=== PATIENT | male | born 1960 | race Caucasian/White ===

== ENCOUNTER 2022-12-30 15:24 | Emergency (ER) | payer SELFPAY ==
[~2022-12-30] VITALS: Ht 177.8 cm; Wt 90.0 kg
[2022-12-30 15:31] VITALS: O2SAT 94
[2022-12-30] MEDS ORDERED: ONDANSETRON HCL 4MG/2ML INJ IV STA (15:43)
[2022-12-30] MEDS ORDERED: SODIUM CHLORIDE 0.9% 1,000 ML IV ONE (15:45)
[2022-12-30] MEDS ORDERED: MECLIZINE 25MG TABLET PO ONE (15:45)
[2022-12-30] MEDS ORDERED: MECLIZINE 12.5MG TABLET PO NR (16:00)
[2022-12-30 16:44] LABS: BASOPHILS % 0.3 % (0.0-2.0); EOSINOPHILS % 0.7 % (0.0-5.0); HEMATOCRIT. 42.9 % (42.0-52.0); HEMOGLOBIN. 14.4 g/dL (14.0-18.0); LYMPHOCYTES % 9.8 % (20.0-50.0); MEAN CORPUSCULAR HEMOGLOBIN 28.7 pg (28.0-32.0); MEAN CORPUSCULAR HGB CONC 33.6 g/dL (31.0-37.0); MEAN CORPUSCULAR VOLUME 85.6 fL (80.0-94.0); MEAN PLATELET VOLUME 8.3 fl (7.4-10.4); MONOCYTES % 4.2 % (2.0-8.0); PLATELET 114 x1000/uL (130-400); RED BLOOD CELL COUNT 5.01 mill/uL (4.7-6.1); RED CELL DISTRIBUTION WIDTH 14.9 % (11.6-14.6); WHITE BLOOD COUNT 8.7 x1000/uL (4.5-11.0)
[2022-12-30 16:49] LABS: PROTHROMBIN TIME 11.1 sec (9.6-11.0)
[2022-12-30 16:54] LABS: CHLORIDE 109 mEq/L (98-107); INDEX HEMOLYSI 1 (1-3); INDEX ICTERIC 1 (1-4); INDEX LIPEMIC 1 (1-3); POTASSIUM 3.7 mEq/L (3.5-5.1); SODIUM 143 mEq/L (136-145)
[2022-12-30 16:58] LABS: DIFFERENTIAL COMMENT 1
[2022-12-30 17:14] LABS: ALANINE AMINOTRANSFERASE 44 IU/L (13-61); ALBUMIN 3.5 g/dL (3.4-5.0); ASPARTATE AMINOTRANSFERASE 18 IU/L (15-37); BILIRUBIN TOTAL 0.7 mg/dL (0.1-1.0); CALCIUM 9.2 mg/dL (8.5-10.1); CARBON DIOXIDE 28 mEq/L (21-32); CREATININE 1.1 mg/dL (0.6-1.3); GLUCOSE 133 mg/dL (70-105); TROPONIN I HIGH SENSITIVITY 5 ng/L (<78); UREA NITROGEN BLOOD 18 mg/dL (7-21)
[2022-12-30 18:27] LABS: TROPONIN I HIGH SENSITIVITY 6 ng/L (<78)
[2022-12-30] MEDS ORDERED: MECL-299 PO (18:31)
[2022-12-30] MEDS ORDERED: ONDANSETRON HCL 4MG/2ML INJ IV NR (18:34)
[2022-12-30 19:00] VITALS: BP 125/72; PULSE 60; RESP 20; TEMP 97.9
== END 2022-12-30 19:16 | disposition home or self-care (01) ==
LOC: ER 15:24
DX: R42 Dizziness and giddiness (principal); E78.00 Pure hypercholesterolemia, unspecified; I10 Essential (primary) hypertension; F19.90 Other psychoactive substance use, unspecified, uncomplicated
CPT/HCPCS: 99284; 70450; 71045; 80053; 85025; 85610; 84484; 36415; J8597; J2405; J7030